=== PATIENT | male | born 1995 | race Caucasian/White ===

== ENCOUNTER 2018-06-19 23:01 | Emergency (ER) | payer BC ==
[~2018-06-19] VITALS: Ht 180.3 cm; Wt 59.9 kg
[2018-06-19 23:07] VITALS: Ht 180.3 cm; Wt 59.9 kg
[2018-06-20 02:16] VITALS: BP 146/99
== END 2018-06-20 02:16 | disposition home or self-care (01) ==
LOC: ED 23:01
DX: R00.2 Palpitations (principal); T43.635A Adverse effect of methylphenidate, initial encounter; Y92.89 Other specified places as the place of occurrence of the external cause; F90.9 Attention-deficit hyperactivity disorder, unspecified type